=== PATIENT | male | born 1960 | race Two or more races ===

== ENCOUNTER 2019-08-05 12:38 | Emergency (ER) | payer SELFPAY ==
[~2019-08-05] VITALS: Ht 165.1 cm; Wt 68.4 kg
--- NOTE | 2019-08-05 13:50 | NUR ---
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
[2019-08-05 14:10] VITALS: BP 136/62
--- NOTE | 2019-08-05 14:13 | NUR ---
THIS IS A 59 YO M W/ C/O COUGH X1 WEEK. REPORTS TAKING ROBUTUSSIN COUGH AND CONGESTION W/ NO RELIEF. PT IS RESTING ON [employer] W/ CALL LIGHT IN REACH. VS STABLE. RAD IN ROOM.
--- NOTE | 2019-08-05 14:44 | NUR ---
CXR RESULTED. PT IS UP FOR RECHECK AT THIS TIME.
--- NOTE | 2019-08-05 15:58 | NUR ---
REQUESTED DC PAPERWORK FROM .
--- NOTE | 2019-08-05 16:23 | NUR ---
Patient given discharge instructions and they have confirmed that they understand the instructions. Patient ambulatory with steady gait.
== END 2019-08-05 16:28 | disposition home or self-care (01) ==
LOC: ED 13:58
DX: J06.9 Acute upper respiratory infection, unspecified (principal)
CPT/HCPCS: 71045; 99283

== ENCOUNTER 2020-05-08 16:30 | Emergency (ER) | payer OTHER ==
[~2020-05-08] VITALS: Ht 162.6 cm; Wt 71.0 kg
[2020-05-08 16:40] VITALS: BP 140/83
--- NOTE | 2020-05-08 18:00 | NUR ---
Patient given discharge instructions and they have confirmed that they understand the instructions. Patient ambulatory with steady gait.
== END 2020-05-08 18:13 | disposition home or self-care (01) ==
LOC: ED 17:30
DX: B37.89 Other sites of candidiasis (principal)
CPT/HCPCS: 82962; 99282

== ENCOUNTER 2020-06-07 08:47 | Emergency (ER) | payer OTHER ==
[~2020-06-07] VITALS: Ht 165.1 cm; Wt 70.0 kg
[2020-06-07 08:57] VITALS: BP 141/38
--- NOTE | 2020-06-07 09:11 | NUR ---
Pt to room from triage, ambulatory with steady gait. Pt provided hospital gown and instructions to change into gown.
--- NOTE | 2020-06-07 09:20 | NUR ---
Dr. Justice at bedside to evaluate pt.
== END 2020-06-07 09:58 | disposition home or self-care (01) ==
LOC: ED 09:00
DX: R21 Rash and other nonspecific skin eruption (principal); L98.9 Disorder of the skin and subcutaneous tissue, unspecified
CPT/HCPCS: 99283

== ENCOUNTER 2020-12-04 16:09 | Emergency (ER) | payer OTHER ==
[~2020-12-04] VITALS: Ht 165.1 cm; Wt 70.1 kg
[2020-12-04 16:19] VITALS: BP 158/109
== END 2020-12-04 18:27 | disposition home or self-care (01) ==
LOC: ED 17:17
DX: B35.6 Tinea cruris (principal)
CPT/HCPCS: 99283

== ENCOUNTER 2020-12-07 16:30 | Emergency (ER) | payer OTHER ==
[~2020-12-07] VITALS: Ht 160 cm; Wt 65.0 kg
[2020-12-07 19:48] VITALS: BP 150/84
--- NOTE | 2020-12-07 19:52 | NUR ---
TASK RN: VS UPDATED.
--- NOTE | 2020-12-07 20:57 | NUR ---
PT AMBULATED TO ROOM 12. CARE ASSUMED AT THIS TIME. AAOX4. NADN. VSSS.
--- NOTE | 2020-12-07 21:40 | NUR ---
Tiffani rahman in [facility] - 12/07/20 at 2141 by TORREY PT EDUCATED ON DC INSTRUCTIONS, VERBALIZED UNDERSTANDING, AMBULATORY TO DC DESK
--- NOTE | 2020-12-07 21:41 | NUR ---
PT EDUCATED ON DC INSTRUCTIONS, VERBALIZED UNDERSTANDING, AMBULATORY TO DC DESK WITH STEDAY GAIT
== END 2020-12-07 21:45 | disposition home or self-care (01) ==
LOC: ED 18:00
DX: B37.42 Candidal balanitis (principal); B35.6 Tinea cruris
CPT/HCPCS: 87491; 87591; 99283